=== PATIENT | male | born 1945 | race Caucasian/White ===

== ENCOUNTER 2018-01-26 09:35 | Day surgery (SDC) | payer MEDICARE ==
[2018-01-21 13:12] VITALS: BMI 34.8
--- NOTE | 2018-01-25 20:13 | P.GSHP ---
History of Present Illness H&P Date: 01/25/18 72 yo male with advanced diabetes. He has had for years He has impotence for years.. HE has failed pde5 inhibitors He has no erection at all We discussed vasoactive injectiosn and a vacuum pump which he declines We discussed IPP He is interested in that HE understands the risks and complications including pain , infection, erosion lack of satidfaction, loss of implant among otheres. He wishes to proceed, - Cardiovascular Cardiovascular: Reports high blood pressure, Reports irregular heart beat - Genitourinary (Male) Genitourinary: Reports as per HPI - Endocrine Endocrine: Reports as per HPI Past Medical History Past Medical History: Atrial Fibrillation, Cancer, Diabetes Mellitus, Hyperlipidemia, Renal Disease Additional Past Medical History / Comment(s): kidney transplant, skin ca hx History of Any Multi-Drug Resistant Organisms: None Reported Past Surgical History: Bowel Resection, Cardiac Ablation, Joint Replacement Additional Past Surgical History / Comment(s): kidney transplant, beulah eyes cataract, Past Anesthesia/Blood Transfusion Reactions: No Reported Reaction Smoking Status: Former smoker - Past Family History Mother Family Medical History: Cancer Additional Family Medical History / Comment(s): colon Medications and Allergies Home Medications Medication Instructions Recorded Confirmed Type Atorvastatin [Lipitor] 80 mg PO HS 01/21/18 01/21/18 History Carvedilol [Coreg] 50 mg PO BID 01/21/18 01/21/18 History Cholecalciferol [Vitamin D3] 1,000 unit PO DAILY 01/21/18 01/21/18 History Ferrous Sulfate [Feosol] 325 mg PO DAILY 01/21/18 01/21/18 History Insulin Aspart [Novolog] 0 unit SQ PC-TID 01/21/18 01/21/18 History Insulin Glargine [Lantus] 80 unit SQ HS 01/21/18 01/21/18 History Multivitamins, Thera [Multivitamin 1 tab PO DAILY 01/21/18 01/21/18 History (formulary)] Rivaroxaban [Xarelto] 20 mg PO DAILY 01/21/18 01/21/18 History Tacrolimus [Prograf] 0.5 mg PO BID 01/21/18 01/21/18 History Allergies Allergy/AdvReac Type Severity Reaction Status Date / Time No Known Allergies Allergy Verified 01/21/18 13:00 Surgical - Exam - General well developed, well nourished - Eyes PERRL - ENT no hearing loss - Neck no masses - Respiratory normal expansion, normal respiratory effort - Cardiovascular Rhythm: irregularly irregular - Abdomen Abdomen: soft, non tender - Genitourinary normal penis with no external lesions, testicles present - Integumentary no rash, no growths - Neurologic normal coordination, normal sensation - Musculoskeletal normal gait, normal posture - Psychiatric oriented to time, oriented to person, oriented to place, speech is normal, memory intact Assessment and Plan Assessment: Impression: 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
[~2018-01-26 09:35] MED LIST: DEXAMETHASONE SOD PHOSPHATE 10 MG/ML 1 ML VIAL IV ONE; GENTAMICIN IVPB ONE; LACTATED RINGERS 1,000 ML IV SCH; ONDANSETRON 4 MG/2 ML VIAL IVP ONE; SODIUM CHLORIDE 0.9% IVPB ONE; ceFAZolin 1,000 MG in DEXTROSE/WATER 1 50ML.BAG IV ONE
[2018-01-26] MEDS ORDERED: LIDOCAINE 1% 20 ML VIAL (10MG/ML) FOR IV START INTRADERMA ONE (10:31)
[2018-01-26 10:33] LABS: Glucose,Whole Blood 120 mg/dL (75-99)
[2018-01-26 11:07] LABS: Albumin 3.7 g/dL (3.5-5.0); Calcium 9.6 mg/dL (8.4-10.2); Potassium 4.7 mmol/L (3.5-5.1); Total Bilirubin 0.7 mg/dL (0.2-1.3); Total Protein 6.2 g/dL (6.3-8.2)
[2018-01-26] MEDS ORDERED: MIDAZOLAM 2 MG/2 ML VIAL ONE (11:29)
[2018-01-26] MEDS ORDERED: SUCCINYLCHOLINE CHLORIDE 100 MG/5 ML SYR IV ONE (11:29)
[2018-01-26] MEDS ORDERED: ePHEDrine SULFATE/0.9% NACL/PF 50 MG/5 ML SYRINGE IV ONE (11:29)
[2018-01-26] MEDS ORDERED: fentaNYL (PF) 50 MCG/ML 2 ML AMP ONE (11:29)
[2018-01-26] MEDS ORDERED: PROPOFOL 10 MG/ML 20 ML VIAL IV ONE (11:29)
[2018-01-26] MEDS ORDERED: LIDOCAINE 1% INJ 10MG/ML (20 ML MDV) ONE (11:29)
[2018-01-26] MEDS ORDERED: GENTAMICIN 80 MG in SODIUM CHLORIDE 0.9% 200 ML IRRIGATION ONE (12:26)
--- NOTE | 2018-01-26 12:47 | P.OP ---
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 He has failed PDE 5 inhibitors. He is not interested nor does he feel that vasoactive injections or vacuum pump will be of any benefit. He is getting no erections at present. He comes for an inflatable penile prosthesis. The risks and complications have been discussed Description of Procedure: The patient is brought to the operating suite. He is given a successful general endotracheal anesthesia. The scrotum and lower abdomen are prepped and draped sterilely. A midline infrapubic incision from the base of the penis to just above the pubis was made. I dissect down through subcutaneous tissue. I exposed the corpora cavernosum of the penis. I cleaned off the corpora cavernosa. 3-0 PDS stitches are placed in each corpora. Corporotomies were made. I dilate proximally and distally in each corpora with Metzenbaum scissors followed by Hegar dilators 10-13. I then measured the length of the corpora measure 12 cm distal and 9 cm proximal. I thus we'll use an 18 cm implant with a 3 cm rear-tip administrative law judge. I then open the rectus fascia and created a space for the reservoir in the prevesical space. The tubing is brought to the external inguinal ring on the right side. The rectus fascias closed with 0 PDS. I then introduced the cylinders in the corpora using the Jamel introducer and Alexis needles. This at nicely and inflated without buckling. I closed the corporotomies with 3-0 PDS. I then placed the pump in the scrotum on the right side anteriorly. Connected the pump to the reservoir straight connects. Once again pump the implant up once nicely without ST deformity or buckling. Wound is irrigated. It is closed with 3-0 chromic in 2 layers and the skin with 4-0 Vicryl. The catheter is passed into the bladder with clear urine return. The patient's awake and returned recovery in good condition. Blood loss is approximately 50 mL.
[2018-01-26] MEDS: HYDROmorphone 0.5 MG/0.5 ML SYRINGE IVP PRN ×4 (13:12→13:46)
[2018-01-26 13:19] VITALS: TEMP 97.1
[2018-01-26 13:21] VITALS: RESP 18
[2018-01-26] MEDS ORDERED: IV FLUID CONTINUATION 900 ML IV ONE (14:09)
[2018-01-26] MEDS ORDERED: HYDROcodone/APAP 5-325MG 1 EACH TAB PO ONE (14:29)
[2018-01-26 14:59] VITALS: BP 155/69; PULSE 60
== END 2018-01-26 15:36 | disposition home or self-care (01) ==
LOC: OR 09:35
PROVIDERS: ATTEND Urology
DX: E11.69 Type 2 diabetes mellitus with other specified complication (principal); N52.1 Erectile dysfunction due to diseases classified elsewhere; I48.91 Unspecified atrial fibrillation; E78.5 Hyperlipidemia, unspecified; Z87.891 Personal history of nicotine dependence; Z85.828 Personal history of other malignant neoplasm of skin; Z79.899 Other long term (current) drug therapy; Z79.01 Long term (current) use of anticoagulants; Z94.0 Kidney transplant status; Z79.4 Long term (current) use of insulin
CPT/HCPCS: 80053; 54405; C1813; J2250; J1580 ×2; J1100; J2405; J2001; J3010; J0690; J0330; J2704; J1170